=== PATIENT | male | born 1990 | race Two or more races ===

== ENCOUNTER 2017-11-24 06:18 | Emergency (ER) | payer SELFPAY ==
--- NOTE | 2017-11-24 07:19 | EDM.PDOC ---
ED HPI GENERAL MEDICAL PROBLEM - General Chief Complaint: Back Pain or Injury Stated Complaint: BACK PAIN, SIDE PAIN Time Seen by Provider: 11/24/17 07:11 - History of Present Illness INITIAL COMMENTS - FREE TEXT/NARRATIVE: HISTORY AND PHYSICAL: History of present illness: Patient is 27-year-old male presents with her back pain is a chronic intermittent problem he's had it since Wednesday primarily his lower back although does involve his mid back to a lesser degree he denies and does not recall any specific trauma recently no numbness weakness incontinence or retention bowel or bladder or other concern. Review of systems: As per history of present illness and below otherwise all systems reviewed and negative. Past medical history: As per history of present illness and as reviewed below otherwise noncontributory. Surgical history: As per history of present illness and as reviewed below otherwise noncontributory. Social history: No reported history of drug or alcohol abuse. Family history: As per history of present illness and as reviewed below otherwise noncontributory. Physical exam: HEENT: Atraumatic, normocephalic, pupils reactive, negative for conjunctival pallor or scleral icterus, mucous membranes moist, throat clear, neck supple, nontender, trachea midline. Lungs: Clear to auscultation, breath sounds equal bilaterally, chest nontender. Heart: S1S2, regular, negative for clicks, rubs, or JVD. Abdomen: Soft, nondistended, nontender. Negative for masses or hepatosplenomegaly. Negative for costovertebral tenderness. Pelvis: Stable nontender. Genitourinary: Deferred. Rectal: Deferred. Extremities: Atraumatic, negative for cords or calf pain. Neurovascular unremarkable. Neuro: Awake, alert, oriented. Cranial nerves II through XII unremarkable. Cerebellum unremarkable. Motor and sensory unremarkable throughout. Exam nonfocal. Back: Patient had some mild paravertebral tenderness at the level of lumbar spine no vertebral body or point tenderness patient will stand on his toes back on his heels deep tendon reflexes motor and sensory are normal Diagnostics: X-ray lumbosacral spine UA UDS Therapeutics: None Impression: #1 back pain Definitive disposition and diagnosis as appropriate pending reevaluation and review of above. low back Pain Score (Numeric/FACES): 7 - Related Data Allergies Allergy/AdvReac Type Severity Reaction Status Date / Time No Known Allergies Allergy Verified 11/24/17 06:20 Home Meds: Home Meds . [No Known Home Meds] 06/13/14 [History] Past Medical History - Past Health History Medical/Surgical History: Denies Medical/Surgical History Endocrine/Metabolic History: Reports: Obesity/BMI 30+ Social & Family History - Family History Family Medical History: Noncontributory - Tobacco Use Smoking Status *Q: Never Smoker Years of Tobacco use: 1 Used Tobacco, but Quit: Yes Month Tobacco Last Used: 1 year - Alcohol Use Days Per Week of Alcohol Use: 0 - Recreational Drug Use Recreational Drug Use: No ED ROS GENERAL - Review of Systems Review Of Systems: ROS reveals no pertinent complaints other than HPI. ED EXAM, GENERAL - Physical Exam Exam: See Below (See dictation) Course - Vital Signs Last Recorded V/S: Last Vital Signs Temp 36.3 C 11/24/17 06:27 Pulse 75 11/24/17 06:27 Resp 18 11/24/17 06:27 BP 137/70 11/24/17 06:27 Pulse Ox 94 L 11/24/17 06:27 - Orders/Labs/Meds Orders: Active Orders 24 hr Category Date Time Status Lumbar Spine 2 or 3V [CR] Stat Exams 11/24/17 06:43 Taken DRUG SCREEN, URINE [URCHEM] Stat Lab 11/24/17 06:43 Uncollected UA W/MICROSCOPIC [URIN] Stat Lab 11/24/17 06:43 Uncollected Departure - Departure Time of Disposition: 07:19 Disposition: Home, Self-Care 01 Condition: Good Clinical Impression: Back pain - Discharge Information Referrals: PCP,None [Primary Care Provider] - Additional Instructions: The following information is given to patients seen in the emergency department who are being discharged to home. This information is to outline your options for follow-up care. We provide all patients seen in our emergency department with a follow-up referral. The need for follow-up, as well as the timing and circumstances, are variable depending upon the specifics of your emergency department visit. If you don't have a primary care physician on staff, we will provide you with a referral. We always advise you to contact your personal physician following an emergency department visit to inform them of the circumstance of the visit and for follow-up with them and/or the need for any referrals to a consulting specialist. The emergency department will also refer you to a specialist when appropriate. This referral assures that you have the opportunity for followup care with a specialist. All of these measure are taken in an effort to provide you with optimal care, which includes your followup. Under all circumstances we always encourage you to contact your private physician who remains a resource for coordinating your care. When calling for followup care, please make the office aware that this follow-up is from your recent emergency room visit. If for any reason you are refused follow-up, please contact the [facility] emergency department at and asked to speak to the emergency department charge nurse. [facility] [address] [place] [id number] Naproxen Flexeril as prescribed follow-up primary medical doctor and/or clinic above call to schedule appointment return as needed as discussed - My Orders Last 24 Hours: My Active Orders 11/24/17 06:43 Lumbar Spine 2 or 3V [CR] Stat DRUG SCREEN, URINE [URCHEM] Stat UA W/MICROSCOPIC [URIN] Stat - Assessment/Plan Last 24 Hours: My Active Orders 11/24/17 06:43 Lumbar Spine 2 or 3V [CR] Stat DRUG SCREEN, URINE [URCHEM] Stat UA W/MICROSCOPIC [URIN] Stat
--- NOTE | 2017-11-25 15:50 | CR ---
EXAM DATE: 11/24/17 PATIENT'S AGE: 27 Patient: GENEVIEVE PINA Facility: [place], [place] Site . Site : 1990 Study: XRay Spine Lumbar [id number]/24/2018 7:08:46 AM Ordering Physician: Doctor Wilkins Final Report: INDICATION: 27 year-old male. Low back pain. No trauma. TECHNIQUE: 3 view lumbar spine. COMPARISON: None. FINDINGS: The lumbar vertebrae are anatomically aligned. The disc spaces are of normal height. The facet joints appear intact. There is no evidence of a fracture or intrinsic bone lesion. The SI joints appear normal. The paraspinal soft tissues appear normal. IMPRESSION: Negative lumbar spine. Dictated by Rebel Lubin MD @ 11/24/2017 7:16:17 AM Dictated by: Rebel Lubin MD @ 11/24/2017 07:16:25 (Electronic Signature) Report Signed by Proxy. MERY
== END 2017-11-24 08:00 | disposition home or self-care (01) ==
LOC: MW.ED 06:18
DX: M54.5 Low back pain (principal); Z87.891 Personal history of nicotine dependence
CPT/HCPCS: 72100; 72100-26; 80305; 81001; 99283

== ENCOUNTER 2021-08-19 09:33 | Emergency (ER) | payer SELFPAY ==
[2021-08-19] MEDS ORDERED: Ketorolac 15 MG/ML SDV IVPUSH STA (11:24)
[2021-08-19] MEDS ORDERED: Sodium Chloride 0.9% 1,000 ML IV ONE (11:24)
[2021-08-19] MEDS ORDERED: Acetaminophen 500 MG Tab PO ONE (11:24)
[2021-08-19] MEDS ORDERED: Alum Hydrox/Mag Hydrox/Simeth 15 ML, Lidocaine 2% 5 ML PO ONE ×2 (11:24)
--- NOTE | 2021-08-19 11:27 | EDM.PDOC ---
ED HPI GENERAL MEDICAL PROBLEM - General Chief Complaint: Respiratory Problem Stated Complaint: COUGHING/CHEST PAIN Time Seen by Provider: 08/19/21 09:36 Source of Information: Reports: Patient History Limitations: Reports: No Limitations - History of Present Illness INITIAL COMMENTS - FREE TEXT/NARRATIVE: 31-year-old male no past medical history presents for cough, shortness of breath, sore throat, burning sensation in throat and chest, body aches, subjective fever all worsening for the last 3 days. Symptoms seem to be especially worse this morning. He does feel short of breath with ambulation. back Pain Score (Numeric/FACES): 10 - Related Data Allergies Allergy/AdvReac Type Severity Reaction Status Date / Time No Known Allergies Allergy Verified 08/19/21 11:10 Home Meds: Home Meds . [No Known Home Meds] 08/19/21 [History] Past Medical History - Past Health History Medical/Surgical History: Denies Medical/Surgical History HEENT History: Reports: None Cardiovascular History: Reports: None Respiratory History: Reports: None Gastrointestinal History: Reports: None Genitourinary History: Reports: None Musculoskeletal History: Reports: None Neurological History: Reports: None Psychiatric History: Reports: None Endocrine/Metabolic History: Reports: Obesity/BMI 30+ Hematologic History: Reports: None Immunologic History: Reports: None Oncologic (Cancer) History: Reports: None Dermatologic History: Reports: None - Infectious Disease History Infectious Disease History: Reports: None - Past Surgical History Head Surgeries/Procedures: Reports: None HEENT Surgical History: Reports: None Cardiovascular Surgical History: Reports: None Respiratory Surgical History: Reports: None GI Surgical History: Reports: None Male Surgical History: Reports: None Endocrine Surgical History: Reports: None Neurological Surgical History: Reports: None Musculoskeletal Surgical History: Reports: None Oncologic Surgical History: Reports: None Dermatological Surgical History: Reports: Plastic Surgical Reconstruction/Repair Social & Family History - Family History Family Medical History: No Pertinent Family History - Tobacco Use Tobacco Use Status *Q: Never Tobacco User Second Hand Smoke Exposure: No - Caffeine Use Caffeine Use: Reports: Soda - Recreational Drug Use Recreational Drug Use: No ED ROS GENERAL - Review of Systems Review Of Systems: Comprehensive ROS is negative, except as noted in HPI. ED EXAM, GENERAL - Physical Exam Exam: See Below Exam Limited By: No Limitations General Appearance: Alert, WD/WN, No Apparent Distress Ears: Hearing Grossly Normal Throat/Mouth: Normal Inspection, Normal Oropharynx, Normal Voice, No Airway Compromise Head: Atraumatic, Normocephalic Respiratory/Chest: No Respiratory Distress, Lungs Clear, Normal Breath Sounds, No Accessory Muscle Use Cardiovascular: Normal Peripheral Pulses, Regular Rate, Rhythm Extremities: Normal Inspection Neurological: Alert, Normal Cognition, Normal Gait Psychiatric: Normal Affect, Normal Mood Skin Exam: Warm, Dry, Intact, Normal Color Course - Vital Signs Last Recorded V/S: Last Vital Signs Temp 100 F 08/19/21 11:11 Pulse 90 08/19/21 11:11 Resp 22 H 08/19/21 11:11 BP 133/81 08/19/21 11:11 Pulse Ox 94 L 08/19/21 11:11 - Orders/Labs/Meds Orders: Active Orders 24 hr Category Date Time Status Saline Lock Insert [OM.PC] Stat Oth 08/19/21 11:24 Ordered Labs: Laboratory Tests 08/19/21 08/19/21 08/19/21 Range/Units 11:20 11:32 11:32 WBC 4.83 (4.0-11.0) K/uL RBC 5.52 (4.50-5.90) M/uL Hgb 15.6 (13.0-17.0) g/dL Hct 46.2 (38.0-50.0) % MCV 83.7 (80.0-98.0) fL MCH 28.3 (27.0-32.0) pg MCHC 33.8 (31.0-37.0) g/dL RDW Std Deviation 42.9 (28.0-62.0) fl RDW Coeff of Donna 14 (11.0-15.0) % Plt Count 169 (150-400) K/uL MPV 10.80 (7.40-12.00) fL Neut % (Auto) 64.8 (48.0-80.0) % Lymph % (Auto) 26.9 (16.0-40.0) % Branch % (Auto) 8.1 (0.0-15.0) % Eos % (Auto) 0.0 (0.0-7.0) % Baso % (Auto) 0.2 (0.0-1.5) % Neut # (Auto) 3.1 (1.4-5.7) K/uL Lymph # (Auto) 1.3 (0.6-2.4) K/uL Branch # (Auto) 0.4 (0.0-0.8) K/uL Eos # (Auto) 0.0 (0.0-0.7) K/uL Baso # (Auto) 0.0 (0.0-0.1) K/uL Nucleated RBC % 0.0 /100WBC Nucleated RBCs # 0 K/uL Sodium 136 (136-148) mmol/L Potassium 4.8 (3.5-5.1) mmol/L Chloride 98 (98-107) mmol/L Carbon Dioxide 29.2 (21.0-32.0) mmol/L BUN 10 (7.0-18.0) mg/dL Creatinine 0.9 (0.8-1.3) mg/dL Est Cr Clr Drug Dosing 112.21 mL/min Estimated GFR (MDRD) > 60.0 ml/min Glucose 96 (74-106) mg/dL Calcium 8.0 L (8.5-10.1) mg/dL Total Bilirubin 0.5 (0.2-1.0) mg/dL AST 80 H (15-37) IU/L ALT 128 H (14-63) IU/L Alkaline Phosphatase 63 (46-116) U/L Total Protein 7.5 (6.4-8.2) g/dL Albumin 3.4 (3.4-5.0) g/dL Globulin 4.1 H (2.6-4.0) g/dL Albumin/Globulin Ratio 0.8 L (0.9-1.6) SARS-CoV-2 RNA (SHAMA) POSITIVE H (NEGATIVE) Meds: Medications Discontinued Medications Generic Name Dose Route Start Last Admin Trade Name Freq PRN Reason Stop Dose Admin Acetaminophen 1,000 mg 08/19/21 11:24 08/19/21 11:31 Acetaminophen 500 Mg Tab PO 08/19/21 11:25 1,000 mg ONETIME ONE Administration Al Hydroxide/Mg Hydroxide 15 0 ml 08/19/21 11:24 08/19/21 11:30 ml/ Lidocaine HCl 5 ml PO 08/19/21 11:25 20 each ONETIME ONE Administration Sodium Chloride 1,000 mls @ 999 mls/hr 08/19/21 11:24 08/19/21 11:31 Normal Saline IV 08/19/21 12:24 999 mls/hr .Bolus ONE Administration Ketorolac Tromethamine 15 mg 08/19/21 11:24 08/19/21 11:30 Ketorolac 15 Mg/Ml Sdv IVPUSH 08/19/21 11:25 15 mg STAT STA Administration - Re-Assessments/Exams Free Text/Narrative Re-Assessment/Exam: 08/19/21 11:26 We will get basic labs, will give IV fluid bolus, Toradol, Tylenol for symptomatic relief. Will trial GI cocktail to help with throat pain. Will get Covid swab is a suspect patient likely has Covid. 08/19/21 13:00 Patient COVID-19 test is positive. Will discharge with Regeneron prescription. Risk and benefits of Regeneron discussed including the experimental nature of the medication. Departure - Departure Time of Disposition: 13:00 Disposition: Home, Self-Care 01 Condition: Good Clinical Impression: COVID-19 - Discharge Information Instructions: COVID-19: What to Do If You Are Sick- [facility] (01/15/2021) Referrals: PCP,None [Primary Care Provider] - Forms: ED Department Discharge Additional Instructions: Your COVID-19 test is positive. You do have mild Covid pneumonia on your chest x-ray. Your blood labs are unremarkable. You were high risk of progression to severe Covid pneumonia. Your vital signs and oxygenation level are normal now, however. I would recommend that you get the Regeneron monoclonal antibody therapy. I did place you on our list and they should call you in the next day or 2 to help schedule this. The Regeneron monoclonal antibody therapy is done in the hospital. Please self isolate until cleared by the [facility]. The following information is given to patients seen in the emergency department who are being discharged to home. This information is to outline your options for follow-up care. We provide all patients seen in our emergency department with a follow-up referral. The need for follow-up, as well as the timing and circumstances, are variable depending upon the specifics of your emergency department visit. If you don't have a primary care physician on staff, we will provide you with a referral. We always advise you to contact your personal physician following an emergency department visit to inform them of the circumstance of the visit and for follow-up with them and/or the need for any referrals to a consulting specialist. The emergency department will also refer you to a specialist when appropriate. This referral assures that you have the opportunity for follow-up care with a specialist. All of these measure are taken in an effort to provide you with optimal care, which includes your follow-up. Under all circumstances we always encourage you to contact your private physician who remains a resource for coordinating your care. When calling for follow-up care, please make the office aware that this follow-up is from your recent emergency room visit. If for any reason you are refused follow-up, please contact the [facility] Emergency Department at and asked to speak to the emergency department charge nurse. Please follow up with your primary care physician. If you do not have a primary care physician, see below: [facility] [address] [place] [id number] [facility] [address] [place] [id number] [facility] [address] [place] [id number] Sepsis Event Note (ED) - Evaluation Sepsis Screening Result: No Definite Risk - Focused Exam Vital Signs: Vital Signs Temp Pulse Resp BP Pulse Ox 08/19/21 11:11 100 F 90 22 H 133/81 94 L - My Orders Last 24 Hours: My Active Orders 08/19/21 11:24 Saline Lock Insert [OM.PC] Stat - Assessment/Plan Last 24 Hours: My Active Orders 08/19/21 11:24 Saline Lock Insert [OM.PC] Stat
--- NOTE | 2021-08-19 12:09 | CR ---
HISTORY: COVID-19. Shortness of breath. COMPARISON: 06/13/2014. TECHNIQUE: Chest one-view portable upright. FINDINGS: Heart size and pulmonary vasculature are within normal limits. There are vague, bilateral interstitial type opacities. There is no pneumothorax. There is no deep sulcus sign. The central airway is normal. The osseous structures are intact. IMPRESSION: 1. Vague, interstitial type opacities bilaterally, consistent with the history of COVID-19 pneumonia. 2. There is no pleural effusion. Dictated by José Miguel Mcpherson MD @ 08/19/2021 12:08:17 PM (Electronically Signed)
[2021-08-19 12:10] LABS: BLOOD UREA NITROGEN,BUN 10 mg/dL (7.0-18.0); CARBON DIOXIDE,CO2 29.2 mmol/L (21.0-32.0); CHLORIDE,CL 98 mmol/L (98-107); GLUCOSE RANDOM 96 mg/dL (74-106); POTASSIUM,K 4.8 mmol/L (3.5-5.1); SODIUM,NA 136 mmol/L (136-148)
== END 2021-08-19 13:22 | disposition home or self-care (01) ==
LOC: MW.ED 09:33
DX: U07.1 COVID-19 (principal); E66.9 Obesity, unspecified; Z68.43 Body mass index [BMI] 50.0-59.9, adult
CPT/HCPCS: 36415; 71045; 80053; 85025; 87635; 96374; 99285; A9270; J1885; J7030; U0002